=== PATIENT | male | born 1930 | race African-American/Black ===

== ENCOUNTER 2016-11-03 00:18 | Inpatient (IN) | payer OTHER ==
[~2016-11-03] VITALS: Ht 165.1 cm; Wt 76.3 kg
[2016-11-03] VITALS (16 sets, daily range): BP systolic 114–168; BP diastolic 62–93
[2016-11-03] MEDS ORDERED: ONDANSETRON HCL 4MG/2ML VIAL IV STA (00:28)
[2016-11-03] MEDS ORDERED: SODIUM CHLORIDE 0.9% 1000ML BAG (SEPSIS BOLUS) IV ONE (00:30)
[2016-11-03 00:51] LABS: BG BASE EXCESS -5.2 mmol/L (-2.0-2.0); BG CARBOXYHEMOGLOBIN 0.8 % (0.5-1.5); BG FRACTION INSPIRED OXYGEN 21; BG HCO3 ACT 20.1 mmol/L (22.0-26.0); BG METHEMOGLOBIN 0.3 % (0.0-1.5); BG OXYHEMOGLOBIN 95.9 % (94.0-97.0); BG PCO2 38.4 mmHg (35.0-45.0); BG PH 7.336 (7.350-7.450); BG PO2 93.1 mmHg (75.0-100.0); BG SAMPLE SITE LEFT RADIAL; BG TOTAL HEMOGLOBIN 14.2 g/dL (12.0-18.0); BG VENT MODE ROOM AIR
[2016-11-03 01:31] LABS: BASOPHILS % 0.2 % (0.0-2.0); EOSINOPHILS % 0.1 % (0.0-5.0); HEMATOCRIT. 38.8 % (42.0-52.0); HEMOGLOBIN. 12.7 g/dL (14.0-18.0); LYMPHOCYTES % 19.4 % (20.0-50.0); MEAN CORPUSCULAR HEMOGLOBIN 29.9 pg (28.0-32.0); MEAN CORPUSCULAR VOLUME 91.4 fL (80.0-94.0); MEAN PLATELET VOLUME 7.8 fl (7.4-10.4); MONOCYTES % 6.3 % (2.0-8.0); PLATELET 257 x1000/uL (130-400); RED BLOOD CELL COUNT 4.24 mill/uL (4.7-6.1); RED CELL DISTRIBUTION WIDTH 13.6 % (11.6-14.6)
[2016-11-03 01:34] LABS: INR 1.1; PROTHROMBIN TIME 11.5 sec (9.4-11.6)
[2016-11-03 01:43] LABS: CARBON DIOXIDE 25 mEq/L (21-32); CHLORIDE 102 mEq/L (98-107); ETHANOL BLOOD < 10 mg/dL; TROPONIN I < 0.02 ng/mL (0.00-0.04)
[2016-11-03] MEDS ORDERED: SODIUM CHLORIDE 0.9% 1,000 ML IV SCH ×2 (02:11→05:03)
[2016-11-03 02:13] LABS: CLARITY URINE CLEAR (CLEAR); COLOR URINE DARK YELLOW (YELLOW); GLUCOSE URINE 3+ (NEGATIVE); KETONES URINE TRACE (NEGATIVE); LEUKOCYTE ESTERASE URINE NEGATIVE (NEGATIVE); NITRITE URINE NEGATIVE (NEGATIVE); OCCULT BLOOD URINE TRACE (NEGATIVE); PH URINE 5.5 (4.5-8.0); PROTEIN URINE 1+ (NEGATIVE); SPECIFIC GRAVITY URINE 1.025 (1.005-1.030)
[2016-11-03 02:35] LABS: *AMPHETAMINES SCREEN URINE NEGATIVE (NEGATIVE); *BARBITURATES SCREEN URINE NEGATIVE (NEGATIVE); *BENZODIAZEPINES SCREEN URINE NEGATIVE (NEGATIVE); *COCAINE SCREEN URINE NEGATIVE (NEGATIVE); CANNABINOID URINE SCREEN NEGATIVE (NEGATIVE); METHADONE URINE SCREEN NEGATIVE (NEGATIVE); OPIATES URINE SCREEN PRESUMTIVE POSITIVE (NEGATIVE); PHENCYCLIDINE URINE SCREEN NEGATIVE (NEGATIVE)
[2016-11-03] MEDS ORDERED: DORZ10DR7 OP (04:54)
[2016-11-03] MEDS ORDERED: METF-516 PO (04:54)
[2016-11-03] MEDS ORDERED: BRIM15DR2 OP (04:54)
[2016-11-03] MEDS ORDERED: LISI-604 PO (04:54)
[2016-11-03] MEDS ORDERED: BLOO-158 MC (04:54)
[2016-11-03] MEDS ORDERED: HYDR-519 PO (04:54)
[2016-11-03] MEDS ORDERED: DULO30CA51 PO (04:54)
[2016-11-03] MEDS ORDERED: LATA2.5D2 EACHEYE (04:54)
[2016-11-03] MEDS ORDERED: NAPR-681 PO (04:54)
[2016-11-03] MEDS ORDERED: TERA2CAP4 PO (04:54)
[2016-11-03] MEDS ORDERED: BECAQ NS (04:54)
[2016-11-03] MEDS ORDERED: DORZ10DR9 OP (04:54)
[2016-11-03] MEDS ORDERED: GLIP10TA10 PO (04:54)
[2016-11-03] MEDS ORDERED: OMEP20CA10 PO (04:54)
[2016-11-03] MEDS ORDERED: FLUT9.9S NS (04:54)
[2016-11-03] MEDS ORDERED: DIPHENHYDRAMINE 50MG/ML VIAL IV PRN (05:15)
[2016-11-03] MEDS ORDERED: IPRATROPIUM/ALBUTEROL 0.5-3(2.5)MG/3ML NEB INH PRN (05:15)
[2016-11-03] MEDS ORDERED: DEXTROSE 50% WATER 50ML SYRINGE IV PRN ×2 (05:15→07:00)
[2016-11-03] MEDS ORDERED: ACETAMINOPHEN 325MG TABLET PO PRN (05:15)
[2016-11-03] MEDS ORDERED: MAGNESIUM/ALUMINUM HYDROXIDE/SIMETHICONE 30ML UDC PO PRN (05:15)
[2016-11-03] MEDS ORDERED: CLONIDINE 0.1MG TABLET PO PRN (05:15)
[2016-11-03] MEDS ORDERED: ONDANSETRON HCL 4MG/2ML VIAL IV PRN (05:15)
[2016-11-03] MEDS: BLOOD SUGAR DIAGNOSTIC STRIP TEST SCH ×4 (05:53→21:20)
[2016-11-03 07:00] LABS: CLARITY URINE SL HAZY (CLEAR); COLOR URINE YELLOW (YELLOW); GLUCOSE URINE 2+ (NEGATIVE); PROTEIN URINE NEGATIVE (NEGATIVE); SPECIFIC GRAVITY URINE 1.017 (1.005-1.030)
[2016-11-03] MEDS ORDERED: BLOOD SUGAR DIAGNOSTIC STRIP TEST SCH (07:00)
[2016-11-03 07:01] LABS: KETONES URINE NEGATIVE (NEGATIVE); LEUKOCYTE ESTERASE URINE NEGATIVE (NEGATIVE); NITRITE URINE NEGATIVE (NEGATIVE); OCCULT BLOOD URINE 2+ (NEGATIVE)
[2016-11-03] MEDS: INSULIN LISPRO 100 UNITS/ML SUBCUT SCH ×4 (08:13→21:00)
[2016-11-03] MEDS ORDERED: ENOXAPARIN 40MG/0.4ML SYR SUBCUT SCH (09:00)
[2016-11-03] MEDS ORDERED: PNEUMOCOCCAL 23-VAL P-SAC VAC 0.5 ML IM ONE (10:00)
[2016-11-03] MEDS ORDERED: INFLUENZA VIRUS VACCINE 0.5ML SYR IM ONE (11:00)
[2016-11-03] MEDS: DULOXETINE HCL 30MG DR CAPSULE PO SCH ×3 (13:27→18:25)
[2016-11-03] MEDS ORDERED: FLUTICASONE PROPIONATE 50MCG/SPRAY BOTTLE BOTHNSTRLS SCH (15:00)
[2016-11-03 15:48] LABS: AMMONIA 43 uMol/L (<32)
[2016-11-03] MEDS ORDERED: LATANOPROST 0.005% OPHTH DROPS 2.5ML EACHEYE SCH (17:00)
== END 2016-11-04 00:24 | disposition short-term general hospital (02) | DRG 73 ==
LOC: ER 00:18 → 3WST 02:13 → EDBEDREQTM 02:17 → EDBEDREQ 02:17 → EDBEDREQSVC 02:17 → ENRESERV 02:45
PROVIDERS: ADMIT Internal Medicine; ATTEND Internal Medicine
DX: G90.8 Other disorders of autonomic nervous system (principal); G93.41 Metabolic encephalopathy; I11.0 Hypertensive heart disease with heart failure; I50.9 Heart failure, unspecified; F03.90 Unspecified dementia, unspecified severity, without behavioral disturbance, psychotic disturbance, mood disturbance, and anxiety; E11.9 Type 2 diabetes mellitus without complications; F32.9 Major depressive disorder, single episode, unspecified; Z88.6 Allergy status to analgesic agent
CPT/HCPCS: 36415; 36600; 70450; 71010; 80053; 80305; 81001; 82140; 82375; 82805; 82962; 83036; 83605; 84443; 84484; 85025; 85610; 86850; 86900; 87040; 87086; 90686; 90732; 93005; 96374; 99285; G0482; J1200; J1650; J1815; J2405; J7030; J7040; A4315

== ENCOUNTER 2017-12-09 19:24 | Emergency (ER) | payer OTHER ==
[~2017-12-09] VITALS: Ht 170.2 cm; Wt 86.0 kg
[~2017-12-09 19:24] MED LIST: BECAQ NS; BLOO-158 MC; BRIM15DR2 OP; DORZ10DR8 OP; DORZ10DR9 OP; DULO30CA51 PO; FLUT9.9S NS; GLIP10TA10 PO; HYDR-519 PO; LATA2.5D2 EACHEYE; LISI-604 PO; METF-516 PO; NAPR-681 PO; OMEP20CA10 PO; TERA2CAP4 PO
[2017-12-09] MEDS ORDERED: IBUPROFEN 600MG TABLET PO ONE (20:15)
[2017-12-09 22:45] VITALS: BP 126/78
== END 2017-12-09 23:14 | disposition home or self-care (01) ==
LOC: ER 19:24
DX: S50.02XA Contusion of left elbow, initial encounter (principal); V28.0XXA Motorcycle driver injured in noncollision transport accident in nontraffic accident, initial encounter; Y93.89 Activity, other specified; Y92.410 Unspecified street and highway as the place of occurrence of the external cause
CPT/HCPCS: 73080; 99284

== ENCOUNTER 2018-04-08 10:26 | Inpatient (IN) | payer OTHER ==
[~2018-04-08] VITALS: Ht 170.2 cm; Wt 75.0 kg
[2018-04-08 15:29] LABS: BASOPHILS % 0.6 % (0.0-2.0); HEMATOCRIT. 34.7 % (42.0-52.0); HEMOGLOBIN. 11.4 g/dL (14.0-18.0); MEAN CORPUSCULAR HEMOGLOBIN 29.8 pg (28.0-32.0); MEAN CORPUSCULAR VOLUME 90.7 fL (80.0-94.0); MEAN PLATELET VOLUME 6.8 fl (7.4-10.4); MONOCYTES % 6.2 % (2.0-8.0); NEUTROPHILS % 56.2 % (40.0-76.0); PLATELET 282 x1000/uL (130-400); RED BLOOD CELL COUNT 3.83 mill/uL (4.7-6.1); RED CELL DISTRIBUTION WIDTH 13.5 % (11.6-14.6)
[2018-04-08 15:36] LABS: CHLORIDE 100 mEq/L (98-107)
[2018-04-08] MEDS ORDERED: LEVOFLOXACIN 750MG PREMIX 150 ML IV ONE (16:00)
[2018-04-08] MEDS ORDERED: IPRATROPIUM/ALBUTEROL 0.5-3(2.5)MG/3ML NEB INH PRN (18:45)
[2018-04-08] MEDS ORDERED: DOCUSATE SODIUM 100MG CAPSULE PO PRN (18:45)
[2018-04-08] MEDS ORDERED: HYDROCODONE/ACETAMINOPHEN 5/325MG TABLET PO PRN (18:45)
[2018-04-08] MEDS ORDERED: LORAZEPAM 0.5MG TABLET PO PRN (18:45)
[2018-04-08] MEDS ORDERED: CLONIDINE 0.1MG TABLET PO PRN (18:45)
[2018-04-08] MEDS ORDERED: ACETAMINOPHEN 325MG TABLET PO PRN (18:45)
[2018-04-08] MEDS ORDERED: ONDANSETRON HCL 4MG/2ML INJ IV PRN (18:45)
[2018-04-08 19:15] LABS: CREATINE KINASE MB FRACTION 4.1 ng/mL (0.5-3.6)
[2018-04-08 19:24] LABS: FOLIC ACID (FOLATE) SERUM >20 ng/mL ng/mL (>5.38)
[2018-04-08 19:36] LABS: VITAMIN B12 SERUM 941 pg/mL (211-911)
[2018-04-08 19:45] LABS: FERRITIN 45 ng/mL (22-322)
[2018-04-08] MEDS ORDERED: DEXTROSE 50% WATER 50ML SYRINGE IV PRN (22:00)
[2018-04-08] MEDS: BLOOD SUGAR DIAGNOSTIC STRIP TEST SCH (22:29)
[2018-04-09 06:38] LABS: BASOPHILS % 0.3 % (0.0-2.0); EOSINOPHILS % 1.5 % (0.0-5.0); HEMATOCRIT. 33.7 % (42.0-52.0); LYMPHOCYTES % 39.2 % (20.0-50.0); MEAN CORPUSCULAR HEMOGLOBIN 29.8 pg (28.0-32.0); MEAN CORPUSCULAR VOLUME 91.2 fL (80.0-94.0); MEAN PLATELET VOLUME 7.5 fl (7.4-10.4); MONOCYTES % 6.9 % (2.0-8.0); NEUTROPHILS % 52.1 % (40.0-76.0); PLATELET 266 x1000/uL (130-400); RED CELL DISTRIBUTION WIDTH 13.4 % (11.6-14.6)
[2018-04-09 07:20] LABS: CHLORIDE 102 mEq/L (98-107)
[2018-04-09 07:28] LABS: PHOSPHORUS 2.7 mg/dL (2.5-4.9)
[2018-04-09] MEDS: INSULIN LISPRO (LOW DOSE) 100 UNITS/ML SUBCUT SCH ×4 (08:20→21:00)
[2018-04-09] MEDS: BLOOD SUGAR DIAGNOSTIC STRIP TEST SCH ×3 (12:19→20:36)
[2018-04-09 15:00] VITALS: BP 137/72
[2018-04-09 16:00] VITALS: BP 137/72
[2018-04-09] MEDS ORDERED: CLONIDINE 0.2MG TABLET PO PRN (16:00)
[2018-04-09] MEDS ORDERED: CLONIDINE 0.1MG TABLET PO PRN (16:00)
[2018-04-09] MEDS: LOSARTAN POTASSIUM 25 MG TABLET PO SCH ×2 (17:25→22:00)
[2018-04-09] MEDS ORDERED: DULO60CA44 MT (18:33)
[2018-04-09] MEDS ORDERED: GLIP10TA10 PO (18:33)
[2018-04-09] MEDS ORDERED: OMEP20TA15 MT (18:36)
[2018-04-09] MEDS ORDERED: MAX MT (18:36)
[2018-04-09] MEDS ORDERED: PRAZ1CAP5 MT (18:36)
[2018-04-09 20:00] VITALS: BP 104/57
[2018-04-09 20:03] LABS: CLARITY URINE CLEAR (CLEAR); COLOR URINE YELLOW (YELLOW); KETONES URINE NEGATIVE (NEGATIVE); LEUKOCYTE ESTERASE URINE NEGATIVE (NEGATIVE); NITRITE URINE NEGATIVE (NEGATIVE); OCCULT BLOOD URINE NEGATIVE (NEGATIVE); PROTEIN URINE NEGATIVE (NEGATIVE); SPECIFIC GRAVITY URINE 1.011 (1.005-1.030); UROBILINOGEN URINE 0.2 E.U./dL (0.2-1.0)
[2018-04-09 20:12] LABS: *BARBITURATES SCREEN URINE NEGATIVE (NEGATIVE); *BENZODIAZEPINES SCREEN URINE NEGATIVE (NEGATIVE); *COCAINE SCREEN URINE NEGATIVE (NEGATIVE); METHADONE URINE SCREEN NEGATIVE (NEGATIVE); OPIATES URINE SCREEN NEGATIVE (NEGATIVE)
[2018-04-09 20:13] LABS: *AMPHETAMINES SCREEN URINE NEGATIVE (NEGATIVE); CANNABINOID URINE SCREEN NEGATIVE (NEGATIVE); PHENCYCLIDINE URINE SCREEN NEGATIVE (NEGATIVE)
[2018-04-09] MEDS ORDERED: PNEUMOCOCCAL 23-VAL P-SAC VAC 0.5 ML IM ONE (21:00)
[2018-04-10] VITALS: BP 125/58
[2018-04-10 04:00] VITALS: BP 166/64
[2018-04-10] MEDS: BLOOD SUGAR DIAGNOSTIC STRIP TEST SCH ×2 (05:23→12:10)
[2018-04-10] MEDS: INSULIN LISPRO (LOW DOSE) 100 UNITS/ML SUBCUT SCH ×2 (05:38→12:40)
[2018-04-10 07:05] LABS: BASOPHILS % 0.4 % (0.0-2.0); EOSINOPHILS % 2.1 % (0.0-5.0); HEMATOCRIT. 34.6 % (42.0-52.0); HEMOGLOBIN. 11.3 g/dL (14.0-18.0); LYMPHOCYTES % 44.6 % (20.0-50.0); MEAN CORPUSCULAR HEMOGLOBIN 29.7 pg (28.0-32.0); MEAN PLATELET VOLUME 7.5 fl (7.4-10.4); MONOCYTES % 8.3 % (2.0-8.0); NEUTROPHILS % 44.6 % (40.0-76.0); PLATELET 278 x1000/uL (130-400); RED BLOOD CELL COUNT 3.81 mill/uL (4.7-6.1); RED CELL DISTRIBUTION WIDTH 13.1 % (11.6-14.6)
[2018-04-10 07:31] LABS: CHLORIDE 103 mEq/L (98-107)
[2018-04-10 08:00] VITALS: BP 148/78
[2018-04-10] MEDS: LOSARTAN POTASSIUM 25 MG TABLET PO SCH (10:15)
[2018-04-10 12:00] VITALS: BP_SYST 152; BP_SYST 153; BP_SYST 154; BP_DIAS 67; BP_DIAS 74; BP_DIAS 84
[2018-04-10] MEDS ORDERED: POTASSIUM CHLORIDE 20MEQ/PACKET PO NR (12:45)
[2018-04-10 16:00] VITALS: BP 167/74
[2018-04-10] MEDS ORDERED: LOSA25TA3 PO (17:40)
[2018-04-10] MEDS ORDERED: FERR325T6 MT ×2 (17:44)
[2018-04-10] MEDS ORDERED: DOCU-150 MT (17:44)
[2018-04-10 18:41] VITALS: BP 150/74
== END 2018-04-10 19:40 | disposition home or self-care (01) | DRG 73 ==
LOC: ER 10:41 → 8WST 16:01 → ENRESERV 04-09 13:37
PROVIDERS: ADMIT Internal Medicine; ATTEND Internal Medicine
DX: G90.8 Other disorders of autonomic nervous system (principal); J18.9 Pneumonia, unspecified organism; R55 Syncope and collapse; E78.5 Hyperlipidemia, unspecified; I10 Essential (primary) hypertension; E11.65 Type 2 diabetes mellitus with hyperglycemia; M19.90 Unspecified osteoarthritis, unspecified site; D64.9 Anemia, unspecified; Z88.6 Allergy status to analgesic agent; E61.1 Iron deficiency; E78.00 Pure hypercholesterolemia, unspecified; R79.1 Abnormal coagulation profile; Z86.73 Personal history of transient ischemic attack (TIA), and cerebral infarction without residual deficits; Z79.899 Other long term (current) drug therapy; F32.9 Major depressive disorder, single episode, unspecified; M54.9 Dorsalgia, unspecified; M54.2 Cervicalgia
CPT/HCPCS: 36415; 70551; 71045; 72040; 80048; 80061; 80305; 82550; 82553; 82607; 82728; 82746; 82962; 83036; 83540; 83550; 83735; 83880; 84100; 84443; 84484; 85379; 93005; 93306; 93880; 96365; 96366; 97162; 99285; J1815; J1956